=== PATIENT | male | born 1980 | race Asian ===

== ENCOUNTER → 2016-05-26 | Day surgery (SDC) | payer OTHER ==
[~2016-05-26] VITALS: Ht 172.7 cm; Wt 68.2 kg
[~2016-05-26] MED LIST: LIDOCAINE HCL 2% 2 ML VIAL (20MG/ML) ONE; MIDAZOLAM HCL 1 MG/ML 2ML VIAL ONE; PROPOFOL IV EMULSION 10 MG/ML 20 ML VIAL IV ONE
[2016-05-26 13:07] VITALS: Ht 172.7 cm; Wt 68.2 kg
[2016-05-26 13:17] VITALS: TEMP 36.6
--- NOTE | 2016-05-26 13:49 | Endo History and Physical ---
History & Physical Date of Service: May 26, 2016. Chief Complaint: abdominal pain Referring Physician: Dr. Kvng Guerra History of Present Illness abd pain Past Surgical History Hx Cardiac Surgery: No Hx Internal Defibrillator: No Hx Pacemaker: No Hx Abdominal Surgery: No Hx of Implantable Prosthesis: No Hx Post-Op Nausea and Vomiting: No Hx Cancer Surgery: No Hx Thoracic Surgery: No Hx Orthopedic: No Hx Urinary Tract Surgery: No Family History None Social History Smoking Status: Current Some Day Smoker Hx Substance Use: No Hx Alcohol Use: Yes (socially) Allergies Coded Allergies: No Known Allergies (Verified , 05/26/16) Current Medications Reported Home Medications Medications Dose Route/Sig Max Daily Dose Days Date Category No Active Prescriptions or Reported Medications Rx Vital Signs Weight (Kilograms): 68.18 Height (Feet): 5 Height (Inches): 8 Date Time Temp Pulse Resp B/P Pulse Ox O2 Delivery O2 Flow Rate FiO2 05/26/16 13:17 36.6 65 18 105/71 98 Room Air Physical Exam General Appearance: WD/WN, no apparent distress Assessment and Plan colonoscopy today
--- NOTE | 2016-05-26 14:36 | Anesthesiology Progress Note ---
Anesthesia Post Op Note Date & Time May 26, 2016 at 14:36 Vital Signs Pain Intensity: 0 Vital Signs Past 12 Hours Date Time Temp Pulse Resp B/P Pulse Ox O2 Delivery O2 Flow Rate FiO2 05/26/16 14:16 70 18 120/57 99 Room Air 05/26/16 13:17 36.6 65 18 105/71 98 Room Air Notes Mental Status: alert / awake / arousable, participated in evaluation Pt Amnestic to Procedure: Yes Nausea / Vomiting: adequately controlled Pain: adequately controlled Airway Patency, RR, SpO2: stable & adequate BP & HR: stable & adequate Hydration State: stable & adequate Anesthetic Complications: no major complications apparent
--- NOTE | 2016-05-26 14:43 | GI REPORT ---
Procedure Date: 05/26/2016 1:52 PM Procedure: Colonoscopy Indications: Generalized abdominal pain, Chronic diarrhea Medicines: Propofol per Anesthesia Complications: No immediate complications. Estimated blood loss: Minimal. Estimated Blood Loss: Estimated blood loss: none. Procedure: Pre-Anesthesia Assessment: - Prior to the procedure, a History and Physical was performed, and patient medications, allergies and sensitivities were reviewed. The patient's tolerance of previous anesthesia was reviewed. - The risks and benefits of the procedure and the sedation options and risks were discussed with the patient. All questions were answered and informed consent was obtained. - Patient identification and proposed procedure were verified prior to the procedure by the physician and the nurse. The procedure was verified in the pre-procedure area in the procedure room. - Mental Status Examination: alert and oriented. Airway Examination: normal oropharyngeal airway and neck mobility. Respiratory Examination: clear to auscultation. CV Examination: normal. Abdominal Examination: bowel sounds present, abdomen soft and non-tender, no masses or organomegaly noted. - ASA Grade Assessment: II - A patient with mild systemic disease. After I obtained informed consent, the scope was passed under direct vision. Throughout the procedure, the patient's blood pressure, pulse, and oxygen saturations were monitored continuously. The scope was introduced through the anus and advanced to the terminal ileum. The colonoscopy was performed without difficulty. The patient tolerated the procedure well. The quality of the bowel preparation was good. Findings: The perianal and digital rectal examinations were normal. Pertinent negatives include normal sphincter tone and no palpable rectal lesions. The terminal ileum appeared normal. The colon (entire examined portion) appeared normal. Biopsies for histology were taken with a cold forceps from the right colon and left colon for evaluation of microscopic colitis. Verification of patient identification for the specimen was done by the physician and nurse using the patient's name and date. Estimated blood loss was minimal. The retroflexed view of the distal rectum and anal verge was normal and showed no anal or rectal abnormalities. Impression: - The examined portion of the ileum was normal. - The entire examined colon is normal. Biopsied. - The distal rectum and anal verge are normal on retroflexion view. Recommendation: - Await pathology results. - Return to primary care physician as previously scheduled. - Discharge patient to home. Anitha Stroud D.O. Anitha Stroud DO 05/26/2016 2:42:47 PM This report has been signed electronically. Note Initiated On: 05/26/2016 1:52 PM I attest to the content of the Intraoperative Record and orders documented therein, exceptions below
--- NOTE | 2016-05-26 14:45 | Discharge Instructions ---
Endoscopy Patient Instructions Date / Procedure(s) Performed May 26, 2016. Colonoscopy Allergy Information Coded Allergies: No Known Allergies (Verified , 05/26/16) Discharge Date / Findings May 26, 2016. Normal colon Medication Instructions Restart Stopped Medication(s): OK to resume home medications Provider Instructions Activity Restrictions - No exercising or heavy lifting for 24 hours. - Do not drink alcohol the day of the procedure. - Do not drive a car or operate machinery until the day after the procedure. - Do not make any important decisions or sign important papers in 24 hours after the procedure. Following Day: - Return to full activity which may include returning to work/school. Diet Start your diet with liquids and light foods (jello, soup, juice, toast). Then eat your usual diet if not nauseated. Treatment For Common After Affects For mild abdominal pain, bloating, or excessive gas: - Rest - Eat lightly - Lie on right side Follow-Up Information Follow-up with Dr. Kvng Guerra as scheduled Anesthesia Information What You Should Know You have had a procedure that required some medicine to reduce anxiety and discomfort. This treatment is called moderate sedation. After receiving the treatment, you may be sleepy, but you will be able to breathe on your own. The effects of the treatment may last for several hours. Follow these instructions along with Activity/Diet recommendations noted above: * Do NOT do anything where dizziness or clumsiness would be dangerous. * Rest quietly at home today, then you can be up and about tomorrow. * Have a responsible person stay with you the rest of today. * You may have had an I.V. today. If so, you may take the dressing off later today. Recommendations Call your doctor if: * Trouble breathing * Continuous vomiting for more than 24 hours * Temperature above 101 degrees * Severe abdominal pain or bloating * Pain not relieved by pain medicine ordered * There is increased drainage or redness from any incision * A large amount of rectal bleeding greater than 2-3 tablespoons. (If you had a polyp/s removed or have hemorrhoids, a small amount of blood - from the rectum is to be expected.) * You have any unanswered questions or concerns. IN THE EVENT OF A SERIOUS EMERGENCY, GO TO THE NEAREST EMERGENCY ROOM Your discharge instructions were prepared by provider Anitha Stroud. Patient Instructions Signature Page Isidoro Dior Patient (or Guardian) Signature/Date: I have read and understand the instructions given to me by my caregivers. Caregiver/RN/Doctor Signature/Date: The above-named patient and/or guardian has received patient instructions on this date. + Original Patient Signature Page (only) stays with chart. Please make copy for patient.
[2016-05-26 14:46] VITALS: BP 95/66; PULSE 70; O2SAT 98
== END | disposition home or self-care (01) ==
LOC: C.GI 12:14
PROVIDERS: ATTEND Internal Medicine
DX: R19.7 Diarrhea, unspecified (principal); R10.84 Generalized abdominal pain; F17.210 Nicotine dependence, cigarettes, uncomplicated

== ENCOUNTER 2017-02-26 01:54 | Emergency (ER) | payer OTHER ==
[~2017-02-26] VITALS: Ht 172.7 cm; Wt 65.0 kg
[2017-02-26 02:00] VITALS: TEMP 36.8; Ht 172.7 cm; Wt 65.0 kg
[2017-02-26] MEDS ORDERED: ACET-1256 PO (02:52)
--- NOTE | 2017-02-26 03:59 | EMERGENCY ROOM VISIT NOTE ---
History First contact with patient: 02:05 Chief Complaint: ANKLE PAIN Stated Complaint: FELL FROM 2ND FLOOR, ANKLE PAIN History of Present Illness The patient is a 36 year old male who presents to the Emergency Room with complaints of fall from second story about 10 feet up when he was trying to reach out for the sign and lost his balance and fell landing on all fours. Patient landed on his hands and knees. This happened at 3:00 today it is now 2: 30 in the morning. Patient states initially he had minimal pain but now he is having increasing right heel and left wrist pain. No prior fractures to this area. Patient denies head injury, neck pain, loss of consciousness, back pain, abdominal pain, chest pain, numbness, tingling or any other medical complaints. No alcohol or drug use. Patient is requesting that his translate. Review of Systems See HPI for pertinent positives & negatives. A total of 10 systems reviewed and were otherwise negative. Past Medical/Surgical History None Social History Smoking Status: Current Every Day Smoker Smokeless Tobacco Use: No Alcohol Use: none Drug Use: none Marital Status: Housing Status: lives with family Occupation Status: employed Current/Historical Medications Scheduled PRN Acetaminophen (Tylenol), 1,000 MG PO Q4 PRN for Pain Physical Exam Vital Signs Date Time Temp Pulse Resp B/P (MAP) Pulse Ox O2 Delivery O2 Flow Rate FiO2 02/26/17 02:00 36.8 79 18 109/62 98 Room Air Physical Exam PHYSICAL EXAM: VITALS: Vitals are noted on the nurse's note and reviewed by myself. Vital signs stable. GENERAL: Pleasant male, in no acute distress, nondiaphoretic, well-developed well-nourished. SKIN: Contusion to left wrist and right knee. The rest of the skin was without obvious lacerations or abrasions. Capillary reflex less than 2 seconds. HEAD: Normocephalic atraumatic. EARS: External auditory canals clear, tympanic membranes pearly rodriguez without erythema or effusion bilaterally. No hemotympanums. No nieves sign. No mastoid tenderness. EYES: Pupils equal round and reactive to light and accommodation. Conjunctivae without injection, sclerae without icterus. Extraocular movements intact. NOSE: Patent, turbinates without inflammation or discharge. No sinus tenderness. No septal hematoma or bleeding. FACE: No facial bone tenderness. Full range of motion of the jaw without tenderness. MOUTH: Mucous membranes moist. Pharynx without erythema or exudate. Uvula midline. Airway patent. Tongue does not deviate. NECK: Supple without nuchal rigidity. Cervical spine is nontender. Full range of motion of the neck without tenderness. No JVD. HEART: Regular rate and rhythm without murmurs gallops or rubs. LUNGS: Clear to auscultation bilaterally without wheezes, rales or rhonchi. No dullness to percussion. No retractions or accessory muscle use. No chest wall tenderness. ABDOMEN: Positive bowel sounds x 4. Normal tympanic percussion. Soft, nontender, without masses or organomegaly. No guarding or rebound tenderness. MUSCULOSKELETAL: No tenderness of the thoracic or lumbar spine. Right heel tender to palpation without deformity. Left wrist tender to palpation with no scaphoid tenderness. Increased pain with range of motion. Full range of motion without tenderness to palpation in all other extremities. Strength 5/5 throughout. Peripheral pulses 2+. NEURO: Patient was alert and oriented to person place and time. Normal sensation to light and sharp touch. Cerebellar function intact. No focal neurological deficits. Medical Decision & Procedures ED Course Prior records/ancillary studies reviewed. Triage Nursing notes reviewed. Additional history obtained from family. The patient's history was concerning for traumatic injury Differential diagnosis: Etiologies such as fracture, dislocation, intra-abdominal, pneumothorax, intrathoracic , intracranial, neurologic, as well as other traumatic pathologies were entertained. Physical examination findings: As above. The patients vitals were stable. ER treatment provided: Ice pack to effected areas On reassessment the patient felt better. Vital signs were stable. Diagnostic interpretation by me: Imaging studies: Left wrist x-ray with no acute fracture dislocation per my interpretation Right heel x-ray is concerning for abnormal spacing between the bones concerns possible fracture so further imaging was ordered per my interpretation CT EXTREMITY RIGHT LOWER: Mildly displaced fracture of the posterior inferior cuboid. Nondisplaced fracture of the navicular. Fracture of the anterolateral calcaneus with displaced small fracture fragments. Radiologist: Elma Nelson M.D. This appears to be consistent with foot fracture. Splinting Indication: foot fx Verbal consent obtained. Risks and benefits were explained with the usual customary discussion. The injured extremity was identified. The patient was prepped and measured for the placement of a posterior ortho-glass splint. Splint applied in the standard fashion over a layer of webril and secured using an elastic bandage. Set into a position of function. Normal neurovascular status after placement verified by me. The patient tolerated the procedure well and the care of the splint was discussed with the patient/family. No complications. Patient was instructed on the stretcher crutches. He is advised follow-up orthopedics in a few days for definitive care for his injury or here in the ER sooner for severe pain, numbness, tingling, worsening signs or symptoms or as needed. Patient was neurovascularly and neurologically intact. He did not have acute abdomen on exam. He had no back pain. Hand and tenderness on exam. Injuries happened greater than 12 hours ago.. By the evaluation outlined above emergent etiologies such as dislocation, intra-abdominal, pneumothorax, pulmonary contusion, hemothorax, intracranial, neurologic,as well as others were deemed relatively unlikely. The patient and family informed about the findings as listed above. All questions were answered and pleased with the treatment. Return instructions were outlined and the patient was discharged in stable condition. Outpatient prescription management: OxyIR Referral: The patient was referred to orthopedics for follow-up in 2 to 3 days for a recheck of the current condition. Case reviewed with my attending Medical Decision As above Medication Reconcilliation Current Medication List: was personally reviewed by me Blood Pressure Screening Patient's blood pressure: Normal blood pressure Impression Primary Impression: Foot fracture, right Additional Impressions: Fall Left wrist injury Contusion of right knee Departure Information Dispostion Home / Self-Care Condition GOOD Referrals Curtis Bowers M.D. (PCP) Patient Instructions My [facility] Additional Instructions DO NOT drive, drink alcohol, operate machinery, or perform dangerous activities today. You were given medications in the ER that can affect your ability to safely function or operate a vehicle. Oxycodone (OxyIR) 5mg: Take 1-2 pills every four hours for breakthrough pain. Avoid alcohol, operating machinery or dangerous equipment, working on ladders or roofs, DRIVING, or situations where being under the influence may be dangerous. It is recommended to use an rnzd-art-wtyriuv stool softener such as Colace, 100mg twice daily while taking this medication to avoid constipation. Ibuprofen(Motrin, Advil) may be used for fever or pain. Use 600mg every six hours as needed. Take with food. Avoid using more than 2400mg in a 24 hour period. Do not use 2400mg per day for more than three consecutive days without physician direction. Prolonged inappropriate use can lead to stomach upset or ulcers. This medication can be taken if you need to drive, work, or perform activities which may be dangerous when taking narcotic pain medication. (AND/OR) Acetaminophen(Tylenol) may be used for fever or pain. Use 1000mg every six hours as needed. Avoid using more than 3000mg in a 24 hour period. This medication can be taken if you need to drive, work, or perform activities which may be dangerous when taking narcotic pain medication. Ice compresses for 20 minutes at a time four times daily for 2-3 days. Use the crutches as instructed. Rest and elevate your injury. Do not get the splint wet. If your splint feels excessively tight, you have worsening pain, develop numbness or tingling, or your digits appear blue, loosen the nikolas wrap. Then reapply the nikolas wrap gently without removing the splint. If your symptoms are not quickly relieved return to the ER for re- evaluation. Continue current medications. Return to the ER immediately for any numbness, tingling, severe pain, extreme swelling in the extremity or as needed. Call Orthopedics Tuesday to arrange follow up for your injury. Problem Qualifiers Primary Impression: Foot fracture, right Encounter type: initial encounter Fracture type: closed Qualified Codes: S92.901A - Unspecified fracture of right foot, initial encounter for closed fracture
[2017-02-26] MEDS ORDERED: OXYCODONE IR HOME PACK PO ONE (04:00)
[2017-02-26 04:05] VITALS: BP 108/68; PULSE 72; O2SAT 99
--- NOTE | 2017-02-26 08:10 | DIAGNOSTIC IMAGING REPORT ---
L WRIST MIN 3 VIEWS ROUTINE CLINICAL HISTORY: 36 years-old Male presenting with fall, pain. TECHNIQUE: Frontal, bilateral oblique, and lateral views of the left wrist were obtained. COMPARISON: None. FINDINGS: Fracture of the pisiform. Soft tissue swelling along the volar aspect of the carpus. Radiocarpal, intercarpal, and carpometacarpal articulations grossly intact. No additional fracture evident. No malalignment. IMPRESSION: Fracture of the pisiform. Electronically signed by: Jonny Kinney M.D. 02/26/2017 8:09 AM Dictated Date/Time: 02/26/2017 8:07 AM
--- NOTE | 2017-02-26 08:11 | DIAGNOSTIC IMAGING REPORT ---
R HEEL MIN 2 VIEWS CLINICAL HISTORY: 36 years-old Male presenting with fall, pain. TECHNIQUE: Frontal and lateral views of the right calcaneus were obtained. COMPARISON: None. FINDINGS: No acute fracture or malalignment. No 6 abnormal sclerosis or lucency in the calcaneus. Minimal these a fight at the insertion of the Achilles tendon. No advanced degenerative change. No radiographic soft tissue abnormality. IMPRESSION: No acute osseous injury of the right calcaneus. Electronically signed by: Jonny Kinney M.D. 02/26/2017 8:10 AM Dictated Date/Time: 02/26/2017 8:09 AM
--- NOTE | 2017-02-26 08:37 | DIAGNOSTIC IMAGING REPORT ---
R LOWER EXTREMITY WITHOUT CLINICAL HISTORY: 36 years-old Male presenting with severe right foot/heel pain, fall from second story. TECHNIQUE: Multidetector CT of the right foot was performed without the use of intravenous contrast. IV contrast: None. A dose lowering technique was used consistent with the principles of ALARA (as low as reasonably achievable). COMPARISON: Plain radiographs of the right heel performed earlier the same day. CT DOSE (mGy.cm): The estimated cumulative dose is 209.98 mGy.cm. FINDINGS: [place] Planter topogram: Unremarkable. Ankle mortise intact. Depression fracture deformity of the lateral calcaneus at the posterior subtalar joint (series 3 image 104). There is 7 mm of cortical offset at the articular surface. Adjacent fragmentation of the talus at the medial aspect of the posterior subtalar joint (series 3 image 119). Ossific fragment at the posterior inferior aspect of the navicular also consistent with small fracture. This is immediately apposed to the comminuted fracture at the medial base of the cuboid, which extends into the calcaneocuboid articulation. Minimal cortical offset at the articulation. Os peroneum noted. Accessory navicular noted. IMPRESSION: 1. Multiple fractures of the hindfoot and midfoot as detailed above. Most significantly a depression fracture deformity of the lateral calcaneus at the posterior subtalar joint and comminuted fracture of the cuboid. Additional fractures as above. Electronically signed by: Jonny Kinney M.D. 02/26/2017 8:36 AM Dictated Date/Time: 02/26/2017 8:26 AM
== END 2017-02-26 04:05 | disposition home or self-care (01) ==
LOC: C.EDB 01:56 → C.EDA 04:05
DX: S92.211A Displaced fracture of cuboid bone of right foot, initial encounter for closed fracture (principal); S92.254A Nondisplaced fracture of navicular [scaphoid] of right foot, initial encounter for closed fracture; S92.021A Displaced fracture of anterior process of right calcaneus, initial encounter for closed fracture; S69.92XA Unspecified injury of left wrist, hand and finger(s), initial encounter; S80.01XA Contusion of right knee, initial encounter; W17.89XA Other fall from one level to another, initial encounter; Y93.89 Activity, other specified; F17.200 Nicotine dependence, unspecified, uncomplicated

== ENCOUNTER → 2017-05-24 | Outpatient (CLI) | payer OTHER ==
[~2017-05-24] MED LIST changes: +ACET-1256 PO; -LIDOCAINE HCL 2% 2 ML VIAL (20MG/ML) ONE; -MIDAZOLAM HCL 1 MG/ML 2ML VIAL ONE; -PROPOFOL IV EMULSION 10 MG/ML 20 ML VIAL IV ONE
--- NOTE | 2017-05-24 10:44 | DIAGNOSTIC IMAGING REPORT ---
ULTRASOUND OF THE MALE PELVIS CLINICAL HISTORY: Left pelvic pain. COMPARISON STUDY: No priors. TECHNIQUE: Real-time, grayscale, and color flow sonography of the male pelvis is performed. Images are reviewed in the transverse and longitudinal planes. FINDINGS: Normal loops of bowel are identified in the pelvis. No mass or fluid collection is seen. No adenopathy is identified. IMPRESSION: Unremarkable sonographic assessment of the male pelvis. Electronically signed by: Laron Way M.D. 05/24/2017 10:43 AM Dictated Date/Time: 05/24/2017 10:41 AM
--- NOTE | 2017-05-24 10:51 | DIAGNOSTIC IMAGING REPORT ---
ABDOMEN COMPLETE (US) CLINICAL HISTORY: 36 years-old Male presenting with LEFT LOWER QUAD PAIN,PELVIC PAIN. TECHNIQUE: Real-time grayscale and limited color Doppler ultrasound imaging of the abdomen was performed. COMPARISON: None. FINDINGS: Pancreas: Visualized portions of the pancreatic head and body normal. Liver: Normal echogenicity and echotexture. No sonographic evidence of hepatic mass. Main portal vein patent with normal directional flow. Biliary: No intrahepatic biliary ductal dilatation. Common bile duct measures up to 3 mm in diameter. Gallbladder: Decompressed. No gallstones, significant wall thickening, pericholecystic fluid or inflammatory change. Spleen: Normal in echogenicity and size, measuring 11.2 cm in length. Kidneys: Normal in size and echogenicity. Right kidney measures 10.6 cm, and left kidney measures 11.1 cm. No hydronephrosis. Vasculature: Visualized portions of the IVC normal. Limited visualization of the abdominal aorta secondary to bowel gas. Ascites: None. IMPRESSION: No cholelithiasis or biliary ductal dilatation. Normal sonographic evaluation of the abdomen. Electronically signed by: Jonny Kinney M.D. 05/24/2017 10:50 AM Dictated Date/Time: 05/24/2017 10:47 AM
== END | disposition home or self-care (01) ==
LOC: C.ULTR 08:05
PROVIDERS: ATTEND Family Medicine
DX: R10.32 Left lower quadrant pain (principal); R10.2 Pelvic and perineal pain